=== PATIENT | female | born 1990 | race Caucasian/White ===

== ENCOUNTER 2017-02-11 21:18 | Emergency (ER) | payer MEDICAID ==
[2017-02-12 00:36] VITALS: BP 132/78
== END 2017-02-12 00:36 | disposition home or self-care (01) ==
LOC: ED 21:18
DX: J32.9 Chronic sinusitis, unspecified (principal); Z90.89 Acquired absence of other organs; Z88.0 Allergy status to penicillin

== ENCOUNTER 2017-03-02 13:29 | Emergency (ER) | payer MEDICAID ==
[~2017-03-02] VITALS: Ht 172.7 cm; Wt 73.9 kg
[2017-03-02 16:48] VITALS: Ht 172.7 cm; Wt 73.9 kg
[2017-03-02 18:30] VITALS: BP 120/73
== END 2017-03-02 18:30 | disposition home or self-care (01) ==
LOC: ED 13:29
DX: J02.8 Acute pharyngitis due to other specified organisms (principal); Z88.0 Allergy status to penicillin

== ENCOUNTER 2018-04-29 23:54 | Emergency (ER) | payer MEDICAID ==
[~2018-04-29] VITALS: Ht 175.3 cm; Wt 78.5 kg
[2018-04-30 00:15] VITALS: Ht 175.3 cm; Wt 78.5 kg
[2018-04-30 01:22] LABS: microscopic required? YES; urine erythrocyte TRACE (NEGATIVE)
[2018-04-30 02:25] VITALS: BP 122/82
== END 2018-04-30 02:25 | disposition home or self-care (01) ==
LOC: ED 23:54
PROVIDERS: Emergency Medicine
DX: N83.202 Unspecified ovarian cyst, left side (principal)
CPT/HCPCS: 87491; 87591

== ENCOUNTER 2019-02-05 20:19 | Emergency (ER) | payer MEDICAID | END 2019-02-05 23:05 | disposition left against medical advice (07) | LOC: ED 20:19 | DX: Z53.21 Procedure and treatment not carried out due to patient leaving prior to being seen by health care provider (principal) ==

== ENCOUNTER 2019-04-22 07:34 | Emergency (ER) | payer SELFPAY ==
[~2019-04-22] VITALS: Ht 170.2 cm; Wt 75.3 kg
[2019-04-22 07:50] VITALS: Ht 170.2 cm; Wt 75.3 kg
[2019-04-22 10:51] VITALS: BP 122/81
== END 2019-04-22 10:51 | disposition home or self-care (01) ==
LOC: ED 07:34
DX: J11.1 Influenza due to unidentified influenza virus with other respiratory manifestations (principal); Z90.49 Acquired absence of other specified parts of digestive tract; Z88.0 Allergy status to penicillin